=== PATIENT | male | born 1965 | race African-American/Black ===

== ENCOUNTER 2016-10-08 16:37 | Inpatient (IN) | payer SELFPAY ==
--- NOTE | ~2016-10-08 | CN ---
Consultation Report [facility] [address] [place]. [address] NAME: DASIA WAGNER : 65 STATUS : ADM IN [facility]#: [id number] AGE: 51 ADM/REG DATE : 10/08/16 MR#: [id number] REPORT SERV DATE: 10/12/16 DICTATED BY: REBECCA ABRAHAM DATE: 10/12/16 REPORT STATUS : Draft TRANSCRIBED BY: MODL DATE: 10/12/16 GI CONSULTATION DATE OF CONSULTATION: 10/12/2016 REASON FOR CONSULTATION: Evaluation and management of abdominal pain. HISTORY OF PRESENT ILLNESS: Mr. Wagner is a 51-year-old male patient, whom we have seen on 09/14 for PEG tube placement by Dr. Zhang. He has a history of type 2 diabetes, insulin dependent, with diabetic gastroparesis as well as chronic pain, on chronic narcotic pain medications. PEG tube was placed secondary to weight loss and gastroparesis. He states that since his PEG was placed, he was doing well up until the date of admission when he had what he states is a meal of rice and beans. He began to have epigastric abdominal pain that progressed to diffuse abdominal pain without radiation. He did have nausea with vomiting. He reported coffee-grounds. Hemoglobin has remained stable. We were consulted to see him for abdominal pain. The patient denies any recent fever, chills, chest pain, shortness of breath, black tarry stools, or hematochezia. He endorses constipation. He states he only goes to the bathroom every two weeks. PAST MEDICAL HISTORY: Positive for gastroparesis, uncontrolled diabetes mellitus type 2, reflux, anemia, KAMLESH, hypertension, neuropathy, chronic pain, psoriasis. PAST SURGICAL HISTORY: Hernia repair, right foot surgery, PEG tube placement. SOCIAL HISTORY: He denies alcohol, tobacco, or illicits. , but disabled. FAMILY HISTORY: Noncontributory from a GI standpoint. ALLERGIES: OXYCONTIN. HOME MEDICATIONS: Vitamin B complex, Caltrate plus D, vitamin D3, Colace, ferrous sulfate, Levsin, NovoLog, Levemir, Linzess, Proventil, Robaxin, Reglan, multivitamin, Percocet, Protonix, MiraLax, Lyrica, Phenergan, Carafate, and Ultram. REVIEW OF SYSTEMS: A 10-point review of systems obtained with pertinent positives addressed in the history of present illness. PERTINENT LABORATORY DATA: Sodium 138, potassium 3.8, BUN is 12, creatinine 0.71. White count 6.7, hemoglobin 8.7, hematocrit 26.1, platelet count 614. INR 1.1. PHYSICAL EXAMINATION: VITAL SIGNS: Temperature 98.2, pulse 98, respirations 18, and blood pressure 167/79. NEURO: Reveals an alert male, resting in bed with no focal deficits. Consultation Report [address] [place]. [address] NAME: DASIA WAGNER : 65 STATUS : ADM IN PAT#: [id number] AGE: 51 ADM/REG DATE : 10/08/16 MR#: [id number] REPORT SERV DATE: 10/12/16 DICTATED BY: REBECCA ABRAHAM DATE: 10/12/16 REPORT STATUS : Draft TRANSCRIBED BY: TESFAYE DATE: 10/12/16 GENERAL: Cooperative, in no obvious apparent distress. He is awake. He is alert. He is oriented x3. HEAD, EARS, EYES, NOSE, AND THROAT: Anicteric. Pupils equal, round, and reactive to light and accommodation. Normocephalic and atraumatic. NECK: No JVD. No palpable nodes. Supple. LUNGS: Clear in the upper lobes. Diminished bilaterally in the bases with normal respiratory effort exhibited. Equal expansion. CARDIOVASCULAR SYSTEM: Regular rate and rhythm, however, tachycardic. ABDOMEN: Soft with minimal distention. Hypoactive bowel sounds in all four quadrants. PEG tube site without redness, drainage, or blood. He has no rebound, guarding, or organomegaly appreciated on exam. EXTREMITIES: No edema. Normal distal pulses. SKIN: Warm, dry, and intact. ASSESSMENT: 1. Abdominal pain/generalized. 2. Abdominal bloat and distention. 3. Nausea. 4. Diabetic gastroparesis. 5. Type 2 diabetes, uncontrolled. 6. Chronic narcotic pain medication use. 7. Constipation, which is chronic, likely opioid induced. PLAN: 1. CT of the abdomen and pelvis. 2. PEG tube to gravity for drainage. 3. Change Reglan to erythromycin. 4. Questionable Movantik, but we will await CT findings as he has gotten enemas and multiple laxatives. 5. Decrease diet to clear liquid diet. We will follow. GABRIEL/TESFAYE SIDDHARTH Perez / [id number] CC: Marshall Vasquez MD
--- NOTE | ~2016-10-08 | DS ---
Discharge Summary [place] [id number] [facility] [place]. [address] NAME: DASIA WAGNER : 65 STATUS : DIS IN PAT#: [id number] AGE: 51 ADM/REG DATE : 10/08/16 MR#: [id number] REPORT SERV DATE: 10/16/16 DICTATED BY: DATE: REPORT STATUS : Draft TRANSCRIBED BY: MODL DATE: 10/15/16 ADMISSION DATE: 10/08/2016 DISCHARGE DATE: 10/15/2016 DISCHARGE DIAGNOSES: 1. Severe gastroparesis. 2. Constipation, severe. 3. Chronic pain. 4. Anemia. 5. Hypertension. 6. Tachycardia. CONSULTING PHYSICIANS: Hadley Zhang M.D. with GI. IMAGING: Includes CT of the abdomen and pelvis without contrast. This demonstrated a large amount of stool in the colon compatible with fecal stasis and constipation. No bowel obstruction pattern was demonstrated. DISCHARGE MEDICATIONS: Caltrate 1200 mg p.o. b.i.d., vitamin D3 5000 units p.o. b.i.d., Colace 300 mg p.o. daily, Levsin 0.125 mg p.o. t.i.d., Levemir 10 units subcu at bedtime, NovoLog sliding scale, lisinopril 20 mg p.o. daily, Linzess 290 mcg p.o. daily, Robaxin 750 mg p.o. four times daily, multivitamin one tablet p.o. daily, Protonix 40 mg p.o. daily, MiraLAX one packet p.o. daily, Lyrica 75 mg p.o. daily, Lopressor 50 mg p.o. b.i.d., Carafate 1 g p.o. four times daily, Ultram 50 mg p.o. t.i.d., Reglan 10 mg p.o. before meals and at bedtime, Phenergan 25 mg p.o. t.i.d. p.r.n. for nausea and vomiting, vitamin B 1 tab p.o. every morning, ferrous sulfate 325 mg p.o. daily, Percocet 7.5/325 mg tablet one tab p.o. t.i.d. p.r.n. for pain. HOSPITAL COURSE/PROBLEM LIST: 1. Severe gastroparesis. GI Medicine was consulted. [facility], Dr. Zhang, the patient has been seen by SIDDHARTH Perez to follow during his hospital course. As mentioned above, the CT scan of the abdomen demonstrated a large amount of stool and constipation; however, there were no other acute findings for the patient's abdominal pain. He was given a plethora of medications to fix his constipation including MiraLAX, docusate, Movantik, Linzess, and GoLYTELY. He has had 5 bowel movements since GoLYTELY. I will continue Movantik p.o. Post discharge, the patient was instructed to follow up with his Pain Management physician concerning further constipation considering I believe this is induced by narcotic use. The patient does have a PEG tube. Unfortunately, the patient has been followed by [facility] in the past, however, he was fired for noncompliance. They will not see him as an outpatient, so he will need to establish care with another GI doctor. He will also continue his Reglan p.o. He has not had any nausea and vomiting. Constipation in the last 24 hours. He is tolerating his diabetic diet. 2. Chronic pain as mentioned above. The patient will follow up with his Pain Management physician concerning this. I will continue the patient's Percocet 7.5/325 mg tablet 3 times a day. I will not increase this. The patient states that his Pain Management Discharge Summary [address] [address] NAME: DASIA WAGNER : 65 STATUS : DIS IN PAT#: [id number] AGE: 51 ADM/REG DATE : 10/08/16 MR#: [id number] REPORT SERV DATE: 10/16/16 DICTATED BY: DATE: REPORT STATUS : Draft TRANSCRIBED BY: MODL DATE: 10/15/16 physician is trying to wean his narcotic medications, which would improve his above problem of constipation. 3. Anemia. The patient's H and H has been stable here. Last H and H was today, and it was 9.0 and 27.9. He will need to follow up with his primary care provider for further monitoring of this. I will continue his p.o. iron that he was prescribed. 4. Hypertension. The patient has been well controlled. I added Lopressor 50 mg p.o. b.i.d., and I will continue this as an outpatient. We will give the patient a prescription. Again, he will need to follow up with his primary care provider for further management of this. His last blood pressure was 136/73 and heart rate 81. The patient is also taking lisinopril 20 mg p.o. daily, which I will continue. 5. Sinus tachycardia. The patient's tachycardia has resolved several days ago. I got a 12-lead EKG for unexplained tachycardia of the patient. He was in pain, however, even when the pain was controlled with IV Dilaudid, his heart rate was still elevated. He does have cardiac risk factors. I performed a 12-lead EKG that was normal sinus tach. I did not note any pathological Q-waves or ST-segment changes. The patient denied chest pain or shortness of breath, however, I did get an echocardiogram. Echocardiogram demonstrated that the patient had a mildly decreased left ventricular systolic function with an ejection fraction of 40-45%. He also had focal anterolateral, distal inferolateral hypocontractility and moderate left ventricular hypertrophy with mild diastolic dysfunction. He had no significant valvular disease. However, this is an abnormal echocardiogram, and the patient has not had a full cardiac workup. In the past, he does not have a urban anthropologist. I will refer him to the [facility] and have an appointment made for him prior to discharge for further workup of possible stress test or cardiac catheterization whatever they deem is necessary. The patient currently is in sinus rhythm with a heart rate of 81. I discussed the echocardiogram findings with Dr. Cruz ensuring that we should treat this patient as an outpatient versus an inpatient, and considering that the patient is asymptomatic, he has no shortness of breath and no chest pain, it seemed reasonable to continue his workup as an outpatient. CLR/MODL Goldy Caldwell NP / [id number] CC: Puneet Cruz MD
--- NOTE | ~2016-10-08 | HP ---
History And Physical [place] [address] [facility] [place]. [address] NAME: DASIA WGANER : 65 STATUS : ADM IN [facility]#: [id number] AGE: 51 ADM/REG DATE : 10/08/16 MR#: [id number] REPORT SERV DATE: 10/09/16 DICTATED BY: TRISHA VELEZ DATE: 10/08/16 REPORT STATUS : Draft TRANSCRIBED BY: MODRossy DATE: 10/08/16 DATE OF ADMISSION: 10/08/2016 CHIEF COMPLAINT: Nausea and vomiting with dark emesis. HISTORY OF PRESENT ILLNESS: The patient is a 51-year-old male with past history of insulin-dependent diabetes, recurrent gastroparesis, and chronic pain on narcotics, reflux pain, anemia, also had recent PEG tube placement for weight loss with gastroparesis. Symptoms began today that has been constant, moderate severity, with dull type pain, no radiation association, associated with nausea, vomiting. The patient reports that he had coffee-ground type emesis and also had an PEG tube with slight back flow, has not noticed any dark stools. Symptoms are still currently present. NG tube was placed in the emergency room without symptoms. REVIEW OF SYSTEMS: A 10-point review of systems negative except that noted in the HPI. PAST MEDICAL HISTORY: Gastroparesis, diabetes, A1c of 10 plus in 07/2016, reflux, anemia seen by Dr. Garcia, iron deficiency, hypertension, neuropathy, chronic pain, and psoriasis. SURGICAL HISTORY: Hernia repair, right foot surgery, and PEG tube placement. ALLERGIES: OXYCONTIN. SOCIAL HISTORY: No tobacco, alcohol or illicits. He is . Prior cook at [employer]. FAMILY HISTORY: Coronary artery disease and diabetes. MEDICATIONS: Vitamin B complex, Caltrate vitamin D3, Colace, ferrous sulfate, Levsin, NovoLog, and Levemir, Linzess, Prinivil, Robaxin, Reglan, multivitamin, Percocet, Protonix, MiraLAX, Lyrica, Phenergan, Carafate, and Ultram. PHYSICAL EXAMINATION: VITAL SIGNS: The patient's blood pressure 156/91, temperature 98.3, initial pulse was 120; however, currently down to 98, respirations 16. GENERAL: No acute distress. Calm, pleasant. EYES: No scleral icterus. EOMI. ENT nares patent. Tongue midline. RESPIRATORY: Clear to auscultation. No wheezes or rales. CV: Mildly tachycardic, but no rubs or gallops. No pedal edema. GI: PEG in place. Abdomen is soft, nontender, and nondistended. Does have mild dark matter in PEG. NG tube has since been removed. : Deferred. MUSCULOSKELETAL: Moves all extremities x4. SKIN: Warm and dry without tenting. LYMPH: No cervical or supraclavicular lymphadenopathy. History And Physical [address] [place]. [address] NAME: DASIA WAGNER : 65 STATUS : ADM IN [facility]#: [id number] AGE: 51 ADM/REG DATE : 10/08/16 MR#: [id number] REPORT SERV DATE: 10/09/16 DICTATED BY: TRISHA VELEZ DATE: 10/08/16 REPORT STATUS : Draft TRANSCRIBED BY: MODL DATE: 10/08/16 HEME: No bleeding or bruising. Acutely does have dark matter in the PEG tube site. NEURO: Alert and oriented. Moves all extremities x4. Symmetrical strength upper and lower extremities. PSYCH: Appropriate mood and affect, pleasant. LABORATORY DATA: CBC: WBC count 11.6, H and H 10.7 and 32.8. Previous hematocrit 28.4, MCV 69.8, platelets 847, INR 1.1. CMP; sodium 135, potassium 4.0, chloride 93, bicarb 30, BUN 31, creatinine 1.56, glucose 470. LFTs within normal limits. Alkaline phosphatase 77, T bilirubin 0.2, type and cross O positive negative. Repeat H and H 11.1 and 34.2. ASSESSMENT: 1. Diabetic gastroparesis with nausea and vomiting. 2. Coffee emesis on iron. 3. Insulin-dependent diabetes, type 2. 4. Chronic pain. 5. Acute kidney injury with volume depletion. 6. Elevated platelets with giant platelets on smear. PLAN: 1. For diabetes to gastroparesis with nausea and vomiting supportive, treat diabetes. The patient is hyperglycemic on arrival. IV fluids, has not really tolerate much p.o. secondary to gastroparesis. The patient did have coffee-emesis. We will confirm. Continue supportive treatment for gastroparesis. 2. Coffee emesis, the patient has also been on iron. H and H is actually increased, although the patient is slightly volume depleted with NORBERT, we will continue to monitor with IV fluids and serial H and H, transfuse, type and cross are currently done. We will check fecal occult blood test. Consult GI, if positive or decrease in H and H, but may still require screening colonoscopy with microcytic anemia. 3. Iron deficiency. He has seen Dr. Garcia in the past for possible followup for surveillance colonoscopies as required as recommended by GI in the past. 4. Insulin-dependent diabetes, type 2 uncontrolled, increase Levemir to b.i.d. schedule and sliding scale insulin. Diet control advance as able to tolerate p.o. 5. Chronic pain, continue on p.r.n. medications at home medication. 6. Acute kidney injury with volume depletion. IV fluids. Treat underlying gastroparesis. 7. Elevated platelets questionable reactive, we will monitor platelets on smear. All questions were answered of the patient at bedside. DISPOSITION: Pending resolution of gastroparesis and ability to tolerate p.o., as well as confirmation of emesis and monitoring of H and H. DDN/MODL Trisha Velez MD History And Physical [address] [address] NAME: DASIA WAGNER : 65 STATUS : ADM IN [facility]#: [id number] AGE: 51 ADM/REG DATE : 10/08/16 MR#: [id number] REPORT SERV DATE: 10/09/16 DICTATED BY: TRISHA VELEZ DATE: 10/08/16 REPORT STATUS : Draft TRANSCRIBED BY: MODL DATE: 10/08/16 / [id number] CC: Flora Cisse M.D.
[2016-10-08 14:41] LABS: BASOPHILS 0.4 %; BASOPHILS ABSOLUTE 0.05 10/3/uL (0.0-0.16); EOSINOPHILS 0.1 %; EOSINOPHILS ABSOLUTE 0.01 10/3/uL (0.0-0.53); HEMATOCRIT 32.8 % (40.0-51.0); HEMOGLOBIN 10.7 g/dL (13.6-17.8); IMMATURE GRANULOCYTES 0.9 %; LYMPHOCYTES 17.1 %; LYMPHOCYTES ABSOLUTE 1.97 10/3/uL (0.67-4.30); MEAN CORPUS HGB CONC 32.6 g/dL (32.0-36.0); MEAN CORPUSCULAR HEMOGLOB 22.8 pg (26.0-34.0); MEAN CORPUSCULAR VOLUME 69.8 fL (80-100); MEAN PLATELET VOLUME 9.1 fL (9.2-13.0); MONOCYTES 8.5 %; MONOCYTES ABSOLUTE 0.98 10/3/uL (0.21-1.20); NEUTROPHILS ABSOLUTE 8.44 10/3/uL (2.02-8.40); PLATELET COUNT 847 10/3/uL (150-400); RBC DISTRIBUTION WIDTH 14.9 % (12.0-16.0); WHITE BLOOD CELLS 11.6 10/3/uL (4.5-10.5)
[2016-10-08 14:42] LABS: MANUAL DIFF NO %
[2016-10-08 14:48] LABS: INTERNATIONAL NORMAL RATI 1.1 UNITS (-); PARTIAL THROMBO TIME 26.2 SEC (22.5-37.2); PROTIME (NOT ORD) 13.8 SEC (12.0-14.5)
[2016-10-08 14:57] LABS: GIANT PLATELET OCC; RBC MORPHOLOGY ABN (NORMAL)
[2016-10-08 15:00] LABS: A/G RATIO 0.6 (0.7-1.9); CO2 (CARBON DIOXIDE) 30 MMOL/L (24-34); SGOT(AST) 6 U/L (5-40); SGPT(ALT) 16 U/L (5-65); SODIUM, SERUM 135 MMOL/L (135-148); TOTAL BILIRUBIN 0.2 MG/DL (0-1.2)
[2016-10-08 15:03] LABS: ALKALINE PHOSPHATASE 77 U/L (45-117); BUN (BLOOD UREA NITROGEN) 30 MG/DL (6-23); CALCIUM, SERUM 9.3 MG/DL (8.5-10.4); CHLORIDE, SERUM 93 MMOL/L (96-112); CREATININE 1.56 MG/DL (0.70-1.30); GFR AFRICAN AMERICAN 59 ML/MIN (>=60); GFR NON AFRICAN AMERICAN 51 ML/MIN (>=60); GLUCOSE, SERUM 470 MG/DL (60-99)
[~2016-10-08 16:37] MED LIST: CALCIUM OTC PO; CALTRA600D PO; CENTRUM PO; D 5000 PO; DSS PO; FERROUS SULF325 M1 PO; FISH-EPA1000 MG PO; HUMALOG SC; HUMALOGMIX SC; INSNOVN SC; LEVEMFLXPN SC; LEVEMIR SC; LEVSINTAB PO; LINZESS 290 M290 MCG PO; LISINOPRIL PO; LOP25 PO; LYRICA75 PO; MAXIMUM D3 PO; METHOC750B PO; MIRALAXPKT PO; MULTIVIT/MIN PO; MVI PO; NOVOLOG SC; PERCOCET 7.5/321 TAB PO; PERCOCET1 TA4 PO; PR25 PO; PRIN20 PO; PROTONIX PO; REG PO; REG5 PO; SUCR PO; ULTRAM50 PO; VITAMIN B PO; VITAMIN D31000 UNIT PO; ZESTRIL20 MG PO
[2016-10-08] MEDS ORDERED: MIRALAX POWDER1 PKT PO (17:13)
[2016-10-08] MEDS ORDERED: DSS PO (17:13)
[2016-10-08 21:21] LABS: HEMATOCRIT 34.2 % (40.0-51.0); HEMOGLOBIN 11.1 g/dL (13.6-17.8)
[2016-10-09 07:04] LABS: BUN (BLOOD UREA NITROGEN) 28 MG/DL (6-23); CALCIUM, SERUM 8.6 MG/DL (8.5-10.4); CHLORIDE, SERUM 105 MMOL/L (96-112); CO2 (CARBON DIOXIDE) 26 MMOL/L (24-34); CREATININE 1.06 MG/DL (0.70-1.30); GFR AFRICAN AMERICAN 94 ML/MIN (>=60); GFR NON AFRICAN AMERICAN 81 ML/MIN (>=60); GLUCOSE, SERUM 79 MG/DL (60-99); POTASSIUM, SERUM 3.6 MMOL/L (3.5-5.3); SODIUM, SERUM 143 MMOL/L (135-148)
[2016-10-09 07:14] LABS: BASOPHILS 0.4 %; BASOPHILS ABSOLUTE 0.05 10/3/uL (0.0-0.16); EOSINOPHILS 0.5 %; EOSINOPHILS ABSOLUTE 0.06 10/3/uL (0.0-0.53); HEMOGLOBIN 9.7 g/dL (13.6-17.8); IMMATURE GRANULOCYTES 0.7 %; IMMATURE GRANULOCYTES ABSOLUTE 0.08 10/3/uL (0.0-0.11); LYMPHOCYTES 26.5 %; LYMPHOCYTES ABSOLUTE 3.24 10/3/uL (0.67-4.30); MEAN CORPUS HGB CONC 33.1 g/dL (32.0-36.0); MEAN CORPUSCULAR HEMOGLOB 23.3 pg (26.0-34.0); MEAN CORPUSCULAR VOLUME 70.4 fL (80-100); MEAN PLATELET VOLUME 9.5 fL (9.2-13.0); MONOCYTES 8.7 %; MONOCYTES ABSOLUTE 1.07 10/3/uL (0.21-1.20); NEUTROPHILS 63.2 %; NEUTROPHILS ABSOLUTE 7.73 10/3/uL (2.02-8.40); PLATELET COUNT 699 10/3/uL (150-400); RBC DISTRIBUTION WIDTH 15.1 % (12.0-16.0); RED CELL COUNT 4.16 10/6/uL (4.7-6.1); RETICULOCYTE COUNT ABSOLUTE 39.5 10/3/uL (20.2-119.8); WHITE BLOOD CELLS 12.2 10/3/uL (4.5-10.5)
[2016-10-09 07:24] LABS: HEMATOCRIT 29.3 % (40.0-51.0); MANUAL DIFF NO %
[2016-10-09 13:30] LABS: HEMATOCRIT 29.5 % (40.0-51.0); HEMOGLOBIN 9.7 g/dL (13.6-17.8)
[2016-10-10 06:39] LABS: BASOPHILS 0.8 %; BASOPHILS ABSOLUTE 0.06 10/3/uL (0.0-0.16); EOSINOPHILS 1.9 %; EOSINOPHILS ABSOLUTE 0.14 10/3/uL (0.0-0.53); HEMATOCRIT 26.7 % (40.0-51.0); HEMOGLOBIN 8.4 g/dL (13.6-17.8); IMMATURE GRANULOCYTES 0.7 %; IMMATURE GRANULOCYTES ABSOLUTE 0.05 10/3/uL (0.0-0.11); LYMPHOCYTES 35.3 %; LYMPHOCYTES ABSOLUTE 2.66 10/3/uL (0.67-4.30); MEAN CORPUS HGB CONC 31.5 g/dL (32.0-36.0); MEAN CORPUSCULAR HEMOGLOB 22.1 pg (26.0-34.0); MEAN CORPUSCULAR VOLUME 70.3 fL (80-100); MEAN PLATELET VOLUME 9.2 fL (9.2-13.0); MONOCYTES ABSOLUTE 0.53 10/3/uL (0.21-1.20); NEUTROPHILS 54.3 %; PLATELET COUNT 644 10/3/uL (150-400); RBC DISTRIBUTION WIDTH 15.1 % (12.0-16.0); WHITE BLOOD CELLS 7.5 10/3/uL (4.5-10.5)
[2016-10-10 06:43] LABS: MANUAL DIFF NO %
[2016-10-10 06:55] LABS: BUN (BLOOD UREA NITROGEN) 24 MG/DL (6-23); CALCIUM, SERUM 7.8 MG/DL (8.5-10.4); CHLORIDE, SERUM 107 MMOL/L (96-112); CO2 (CARBON DIOXIDE) 24 MMOL/L (24-34); CREATININE 0.96 MG/DL (0.70-1.30); GFR AFRICAN AMERICAN 106 ML/MIN (>=60); GFR NON AFRICAN AMERICAN 91 ML/MIN (>=60); GLUCOSE, SERUM 85 MG/DL (60-99); POTASSIUM, SERUM 3.3 MMOL/L (3.5-5.3); SODIUM, SERUM 141 MMOL/L (135-148)
[2016-10-11 08:50] LABS: BASOPHILS 0.8 %; BASOPHILS ABSOLUTE 0.06 10/3/uL (0.0-0.16); EOSINOPHILS 0.7 %; EOSINOPHILS ABSOLUTE 0.05 10/3/uL (0.0-0.53); HEMATOCRIT 28.2 % (40.0-51.0); HEMOGLOBIN 9.2 g/dL (13.6-17.8); IMMATURE GRANULOCYTES 0.8 %; IMMATURE GRANULOCYTES ABSOLUTE 0.06 10/3/uL (0.0-0.11); LYMPHOCYTES 31.3 %; LYMPHOCYTES ABSOLUTE 2.41 10/3/uL (0.67-4.30); MEAN CORPUS HGB CONC 32.6 g/dL (32.0-36.0); MEAN CORPUSCULAR HEMOGLOB 23.2 pg (26.0-34.0); MEAN PLATELET VOLUME 9.4 fL (9.2-13.0); MONOCYTES 6.4 %; MONOCYTES ABSOLUTE 0.49 10/3/uL (0.21-1.20); NEUTROPHILS ABSOLUTE 4.62 10/3/uL (2.02-8.40); PLATELET COUNT 674 10/3/uL (150-400); RBC DISTRIBUTION WIDTH 14.8 % (12.0-16.0); RED CELL COUNT 3.97 10/6/uL (4.7-6.1); WHITE BLOOD CELLS 7.7 10/3/uL (4.5-10.5)
[2016-10-11 08:51] LABS: CALCIUM, SERUM 8.4 MG/DL (8.5-10.4); CHLORIDE, SERUM 103 MMOL/L (96-112); CO2 (CARBON DIOXIDE) 21 MMOL/L (24-34); CREATININE 0.72 MG/DL (0.70-1.30); GFR AFRICAN AMERICAN 125 ML/MIN (>=60); GFR NON AFRICAN AMERICAN 108 ML/MIN (>=60); POTASSIUM, SERUM 3.6 MMOL/L (3.5-5.3); SODIUM, SERUM 136 MMOL/L (135-148)
[2016-10-11 08:52] LABS: BUN (BLOOD UREA NITROGEN) 16 MG/DL (6-23); GLUCOSE, SERUM 142 MG/DL (60-99)
[2016-10-11 09:15] LABS: PLATELET ESTIMATE INC (ADEQUATE)
[2016-10-12 06:32] LABS: BASOPHILS 0.5 %; BASOPHILS ABSOLUTE 0.03 10/3/uL (0.0-0.16); EOSINOPHILS ABSOLUTE 0.13 10/3/uL (0.0-0.53); HEMATOCRIT 26.1 % (40.0-51.0); HEMOGLOBIN 8.7 g/dL (13.6-17.8); IMMATURE GRANULOCYTES 0.8 %; IMMATURE GRANULOCYTES ABSOLUTE 0.05 10/3/uL (0.0-0.11); LYMPHOCYTES 33.2 %; LYMPHOCYTES ABSOLUTE 2.21 10/3/uL (0.67-4.30); MEAN CORPUS HGB CONC 33.3 g/dL (32.0-36.0); MEAN CORPUSCULAR HEMOGLOB 23.6 pg (26.0-34.0); MEAN CORPUSCULAR VOLUME 70.7 fL (80-100); MEAN PLATELET VOLUME 9.3 fL (9.2-13.0); MONOCYTES 9.3 %; MONOCYTES ABSOLUTE 0.62 10/3/uL (0.21-1.20); NEUTROPHILS 54.2 %; NEUTROPHILS ABSOLUTE 3.62 10/3/uL (2.02-8.40); PLATELET COUNT 614 10/3/uL (150-400); RBC DISTRIBUTION WIDTH 15.1 % (12.0-16.0); RED CELL COUNT 3.69 10/6/uL (4.7-6.1); WHITE BLOOD CELLS 6.7 10/3/uL (4.5-10.5)
[2016-10-12 06:33] LABS: MANUAL DIFF NO %
[2016-10-12 06:41] LABS: CALCIUM, SERUM 8.7 MG/DL (8.5-10.4); CHLORIDE, SERUM 104 MMOL/L (96-112); CO2 (CARBON DIOXIDE) 23 MMOL/L (24-34); CREATININE 0.71 MG/DL (0.70-1.30); GFR AFRICAN AMERICAN 126 ML/MIN (>=60); GFR NON AFRICAN AMERICAN 109 ML/MIN (>=60); POTASSIUM, SERUM 3.8 MMOL/L (3.5-5.3); SODIUM, SERUM 138 MMOL/L (135-148)
[2016-10-12 06:42] LABS: BUN (BLOOD UREA NITROGEN) 12 MG/DL (6-23); GLUCOSE, SERUM 105 MG/DL (60-99)
[2016-10-12 09:17] LABS: A/G RATIO 0.6 (0.7-1.9); ALBUMIN 2.2 G/DL (3.5-5.0); ALKALINE PHOSPHATASE 48 U/L (45-117); GLOBULIN 3.7 G/DL (2.5-4.1); SGOT(AST) 12 U/L (5-40); SGPT(ALT) 13 U/L (5-65); TOTAL BILIRUBIN 0.3 MG/DL (0-1.2); TOTAL PROTEIN 5.9 G/DL (6.0-8.5)
[2016-10-13 05:03] LABS: BASOPHILS 0.3 %; BASOPHILS ABSOLUTE 0.03 10/3/uL (0.0-0.16); EOSINOPHILS 2.2 %; EOSINOPHILS ABSOLUTE 0.19 10/3/uL (0.0-0.53); HEMATOCRIT 29.5 % (40.0-51.0); HEMOGLOBIN 9.8 g/dL (13.6-17.8); IMMATURE GRANULOCYTES 0.9 %; IMMATURE GRANULOCYTES ABSOLUTE 0.08 10/3/uL (0.0-0.11); LYMPHOCYTES 46.1 %; LYMPHOCYTES ABSOLUTE 4.01 10/3/uL (0.67-4.30); MEAN CORPUS HGB CONC 33.2 g/dL (32.0-36.0); MEAN CORPUSCULAR HEMOGLOB 23.5 pg (26.0-34.0); MEAN CORPUSCULAR VOLUME 70.7 fL (80-100); MONOCYTES 9.8 %; MONOCYTES ABSOLUTE 0.85 10/3/uL (0.21-1.20); NEUTROPHILS 40.7 %; NEUTROPHILS ABSOLUTE 3.53 10/3/uL (2.02-8.40); PLATELET COUNT 702 10/3/uL (150-400); RBC DISTRIBUTION WIDTH 15.1 % (12.0-16.0); RED CELL COUNT 4.17 10/6/uL (4.7-6.1); WHITE BLOOD CELLS 8.7 10/3/uL (4.5-10.5)
[2016-10-13 05:04] LABS: MANUAL DIFF NO %; PROTIME (NOT ORD) 13.3 SEC (12.0-14.5)
[2016-10-13 05:14] LABS: BUN (BLOOD UREA NITROGEN) 8 MG/DL (6-23); CALCIUM, SERUM 8.7 MG/DL (8.5-10.4); CHLORIDE, SERUM 104 MMOL/L (96-112); CO2 (CARBON DIOXIDE) 26 MMOL/L (24-34); GFR AFRICAN AMERICAN 127 ML/MIN (>=60); GFR NON AFRICAN AMERICAN 109 ML/MIN (>=60); GLUCOSE, SERUM 59 MG/DL (60-99); POTASSIUM, SERUM 3.2 MMOL/L (3.5-5.3); SODIUM, SERUM 139 MMOL/L (135-148)
[2016-10-14 08:22] LABS: HEMATOCRIT 27.9 % (40.0-51.0); HEMOGLOBIN 9.1 g/dL (13.6-17.8); MEAN CORPUS HGB CONC 32.6 g/dL (32.0-36.0); MEAN CORPUSCULAR HEMOGLOB 23.2 pg (26.0-34.0); MEAN CORPUSCULAR VOLUME 71.2 fL (80-100); MEAN PLATELET VOLUME 8.6 fL (9.2-13.0); PLATELET COUNT 607 10/3/uL (150-400); RBC DISTRIBUTION WIDTH 15.2 % (12.0-16.0); RED CELL COUNT 3.92 10/6/uL (4.7-6.1); WHITE BLOOD CELLS 6.8 10/3/uL (4.5-10.5)
[2016-10-14 08:26] LABS: MANUAL DIFF YES %
[2016-10-14 08:47] LABS: LYMPHOCYTES 30 %; LYMPHOCYTES ABSOLUTE (CALC) 2.04 10/3/uL (0.67-4.30); MONOCYTES 4 %; MONOCYTES ABSOLUTE (CALC) 0.27 10/3/uL (0.21-1.20); NEUTROPHILS ABSOLUTE (CALC) 4.49 10/3/uL (2.02-8.40); PLATELET ESTIMATE INC (ADEQUATE); RBC MORPHOLOGY NORM (NORMAL); SEGMENTED NEUTROPHIL (0) 66 %; TOTAL NUCLEATED CELLS 100
[2016-10-14 08:48] LABS: BUN (BLOOD UREA NITROGEN) 10 MG/DL (6-23); CALCIUM, SERUM 8.1 MG/DL (8.5-10.4); CHLORIDE, SERUM 104 MMOL/L (96-112); CO2 (CARBON DIOXIDE) 24 MMOL/L (24-34); CREATININE 0.81 MG/DL (0.70-1.30); GFR AFRICAN AMERICAN 119 ML/MIN (>=60); GFR NON AFRICAN AMERICAN 103 ML/MIN (>=60); POTASSIUM, SERUM 3.3 MMOL/L (3.5-5.3); SODIUM, SERUM 139 MMOL/L (135-148)
[2016-10-14 08:49] LABS: GLUCOSE, SERUM 108 MG/DL (60-99)
[2016-10-15 07:07] LABS: BASOPHILS 1.2 %; BASOPHILS ABSOLUTE 0.09 10/3/uL (0.0-0.16); EOSINOPHILS 3.9 %; EOSINOPHILS ABSOLUTE 0.29 10/3/uL (0.0-0.53); HEMATOCRIT 27.9 % (40.0-51.0); IMMATURE GRANULOCYTES 0.5 %; IMMATURE GRANULOCYTES ABSOLUTE 0.04 10/3/uL (0.0-0.11); LYMPHOCYTES 44.3 %; LYMPHOCYTES ABSOLUTE 3.29 10/3/uL (0.67-4.30); MEAN CORPUS HGB CONC 32.3 g/dL (32.0-36.0); MEAN CORPUSCULAR VOLUME 71.4 fL (80-100); MEAN PLATELET VOLUME 8.9 fL (9.2-13.0); MONOCYTES 8.5 %; MONOCYTES ABSOLUTE 0.63 10/3/uL (0.21-1.20); NEUTROPHILS 41.6 %; NEUTROPHILS ABSOLUTE 3.08 10/3/uL (2.02-8.40); PLATELET COUNT 627 10/3/uL (150-400); RBC DISTRIBUTION WIDTH 15.6 % (12.0-16.0); RED CELL COUNT 3.91 10/6/uL (4.7-6.1); WHITE BLOOD CELLS 7.4 10/3/uL (4.5-10.5)
[2016-10-15 07:09] LABS: MANUAL DIFF NO %
[2016-10-15 07:18] LABS: BUN (BLOOD UREA NITROGEN) 10 MG/DL (6-23); CHLORIDE, SERUM 105 MMOL/L (96-112); CO2 (CARBON DIOXIDE) 25 MMOL/L (24-34); CREATININE 0.93 MG/DL (0.70-1.30); GFR AFRICAN AMERICAN 110 ML/MIN (>=60); GFR NON AFRICAN AMERICAN 95 ML/MIN (>=60); SODIUM, SERUM 140 MMOL/L (135-148)
[2016-10-15 07:19] LABS: GLUCOSE, SERUM 72 MG/DL (60-99); POTASSIUM, SERUM 4.1 MMOL/L (3.5-5.3)
[2016-10-15] MEDS ORDERED: LOP50 PO (10:48)
[2016-10-15] MEDS ORDERED: MOVANTIK25 MG PO (10:49)
== END 2016-10-15 17:24 | disposition home or self-care (01) | DRG 74 ==
LOC: ER 16:37 → 4SO 17:24
PROVIDERS: Emergency Medicine; Nurse Practitioner Acute Care; Student in an Organized Health Care Education/Training Program
DX: E11.43 Type 2 diabetes mellitus with diabetic autonomic (poly)neuropathy (principal); K92.0 Hematemesis; N17.9 Acute kidney failure, unspecified; N18.3 Chronic kidney disease, stage 3 (moderate); E46 Unspecified protein-calorie malnutrition; E11.65 Type 2 diabetes mellitus with hyperglycemia; K31.84 Gastroparesis; I12.9 Hypertensive chronic kidney disease with stage 1 through stage 4 chronic kidney disease, or unspecified chronic kidney disease; Z23 Encounter for immunization; E86.9 Volume depletion, unspecified; G89.29 Other chronic pain; F11.90 Opioid use, unspecified, uncomplicated; D64.9 Anemia, unspecified; E11.42 Type 2 diabetes mellitus with diabetic polyneuropathy; L40.9 Psoriasis, unspecified; K59.00 Constipation, unspecified; R00.0 Tachycardia, unspecified; K59.03 Drug induced constipation; T40.2X5A Adverse effect of other opioids, initial encounter; Z93.1 Gastrostomy status; Z79.4 Long term (current) use of insulin; Z88.5 Allergy status to narcotic agent; Z98.890 Other specified postprocedural states; Y92.009 Unspecified place in unspecified non-institutional (private) residence as the place of occurrence of the external cause; Z68.23 Body mass index [BMI] 23.0-23.9, adult
CPT/HCPCS: 36415; 74176; 80048; 80053; 82270; 82272; 82570; 82962; 83605; 83735; 83935; 84132; 84300; 85014; 85018; 85025; 85045; 85610; 85730; 86850; 86900; 86901; 93005; 93306; 99285; A9270-GY; C9113; J0360; J1170; J2405; J2550

== ENCOUNTER 2016-10-27 11:28 | Emergency (ER) | payer SELFPAY ==
[2016-10-27 10:56] LABS: BASOPHILS ABSOLUTE 0.06 10/3/uL (0.0-0.16); EOSINOPHILS 0.7 %; EOSINOPHILS ABSOLUTE 0.04 10/3/uL (0.0-0.53); HEMATOCRIT 34.6 % (40.0-51.0); HEMOGLOBIN 11.2 g/dL (13.6-17.8); IMMATURE GRANULOCYTES 0.3 %; IMMATURE GRANULOCYTES ABSOLUTE 0.02 10/3/uL (0.0-0.11); LYMPHOCYTES 27.1 %; LYMPHOCYTES ABSOLUTE 1.59 10/3/uL (0.67-4.30); MANUAL DIFF NO %; MEAN CORPUS HGB CONC 32.4 g/dL (32.0-36.0); MEAN CORPUSCULAR HEMOGLOB 23.5 pg (26.0-34.0); MEAN CORPUSCULAR VOLUME 72.5 fL (80-100); MEAN PLATELET VOLUME 8.5 fL (9.2-13.0); MONOCYTES 6.5 %; MONOCYTES ABSOLUTE 0.38 10/3/uL (0.21-1.20); NEUTROPHILS 64.4 %; NEUTROPHILS ABSOLUTE 3.78 10/3/uL (2.02-8.40); PLATELET COUNT 530 10/3/uL (150-400); RBC DISTRIBUTION WIDTH 15.8 % (12.0-16.0); RED CELL COUNT 4.77 10/6/uL (4.7-6.1); WHITE BLOOD CELLS 5.9 10/3/uL (4.5-10.5)
[2016-10-27 11:10] LABS: A/G RATIO 0.6 (0.7-1.9); ALBUMIN 2.7 G/DL (3.5-5.0); ALKALINE PHOSPHATASE 55 U/L (45-117); BUN (BLOOD UREA NITROGEN) 13 MG/DL (6-23); CALCIUM, SERUM 8.9 MG/DL (8.5-10.4); CHLORIDE, SERUM 102 MMOL/L (96-112); CO2 (CARBON DIOXIDE) 26 MMOL/L (24-34); CREATININE 0.92 MG/DL (0.70-1.30); GFR AFRICAN AMERICAN 111 ML/MIN (>=60); GFR NON AFRICAN AMERICAN 96 ML/MIN (>=60); GLOBULIN 4.4 G/DL (2.5-4.1); GLUCOSE, SERUM 269 MG/DL (60-99); POTASSIUM, SERUM 3.6 MMOL/L (3.5-5.3); SGOT(AST) 10 U/L (5-40); SGPT(ALT) 19 U/L (5-65); SODIUM, SERUM 139 MMOL/L (135-148); TOTAL BILIRUBIN 0.3 MG/DL (0-1.2); TOTAL PROTEIN 7.1 G/DL (6.0-8.5)
[~2016-10-27 11:28] MED LIST changes: +LOP50 PO; +MIRALAX POWDER1 PKT PO; +MOVANTIK25 MG PO
[2016-10-27 13:19] LABS: ASCORBIC ACID (UR NOT ORDER) NEG (NEG); BILIRUBIN, URINE NEGATIVE (NEG); ER URINALYSIS TAT 0 Hrs 13 Mins; KETONE, URINE TRACE MG/DL (NEG); LEUKOCYTE ESTERASE(NOT OR NEG (NEG); NITRITE (URINE) NEG (NEG); WBC (NOT ORDERED) (RFLEX) 1 (0-5)
== END 2016-10-27 14:25 | disposition home or self-care (01) ==
LOC: ER 11:28
PROVIDERS: Nurse Practitioner
DX: E11.43 Type 2 diabetes mellitus with diabetic autonomic (poly)neuropathy (principal); K31.84 Gastroparesis; E11.65 Type 2 diabetes mellitus with hyperglycemia; I12.9 Hypertensive chronic kidney disease with stage 1 through stage 4 chronic kidney disease, or unspecified chronic kidney disease; N18.9 Chronic kidney disease, unspecified; K21.9 Gastro-esophageal reflux disease without esophagitis; D64.9 Anemia, unspecified; Z93.1 Gastrostomy status; Z88.5 Allergy status to narcotic agent; Z79.4 Long term (current) use of insulin; Z79.899 Other long term (current) drug therapy
CPT/HCPCS: 74022; 80053; 81001; 83605; 83690; 85025; 96374; 96375; 99285; J1200; J1980; J2550; J2765

== ENCOUNTER 2016-11-16 17:24 | Emergency (ER) | payer SELFPAY ==
[2016-11-16 18:40] LABS: BASOPHILS 0.6 %; BASOPHILS ABSOLUTE 0.04 10/3/uL (0.0-0.16); EOSINOPHILS 0.6 %; EOSINOPHILS ABSOLUTE 0.04 10/3/uL (0.0-0.53); ER CBC TAT 0 Hrs 11 Mins; IMMATURE GRANULOCYTES 0.6 %; IMMATURE GRANULOCYTES ABSOLUTE 0.04 10/3/uL (0.0-0.11); LYMPHOCYTES 28.9 %; LYMPHOCYTES ABSOLUTE 1.94 10/3/uL (0.67-4.30); MEAN CORPUS HGB CONC 32.8 g/dL (32.0-36.0); MEAN CORPUSCULAR HEMOGLOB 23.6 pg (26.0-34.0); MEAN CORPUSCULAR VOLUME 72.1 fL (80-100); MEAN PLATELET VOLUME 8.8 fL (9.2-13.0); MONOCYTES 5.5 %; MONOCYTES ABSOLUTE 0.37 10/3/uL (0.21-1.20); NEUTROPHILS 63.8 %; NEUTROPHILS ABSOLUTE 4.29 10/3/uL (2.02-8.40); RBC DISTRIBUTION WIDTH 14.9 % (12.0-16.0); RED CELL COUNT 4.23 10/6/uL (4.7-6.1); WHITE BLOOD CELLS 6.7 10/3/uL (4.5-10.5)
[2016-11-16 18:49] LABS: HEMATOCRIT 30.5 % (40.0-51.0); PLATELET COUNT 753 10/3/uL (150-400)
[2016-11-16 18:51] LABS: ASCORBIC ACID (UR NOT ORDER) NEG (NEG); BILIRUBIN, URINE NEGATIVE (NEG); ER URINALYSIS TAT 0 Hrs 19 Mins; KETONE, URINE NEGATIVE (NEG); LEUKOCYTE ESTERASE(NOT OR NEG (NEG); NITRITE (URINE) NEG (NEG); WBC (NOT ORDERED) (RFLEX) 1 (0-5)
[2016-11-16 18:54] LABS: A/G RATIO 0.7 (0.7-1.9); ALBUMIN 2.6 G/DL (3.5-5.0); ALKALINE PHOSPHATASE 61 U/L (45-117); CHLORIDE, SERUM 97 MMOL/L (96-112); CO2 (CARBON DIOXIDE) 27 MMOL/L (24-34); CREATININE 1.27 MG/DL (0.70-1.30); GFR AFRICAN AMERICAN 75 ML/MIN (>=60); GFR NON AFRICAN AMERICAN 65 ML/MIN (>=60); GLOBULIN 3.7 G/DL (2.5-4.1); POTASSIUM, SERUM 4.3 MMOL/L (3.5-5.3); SGOT(AST) 19 U/L (5-40); SGPT(ALT) 27 U/L (5-65); SODIUM, SERUM 133 MMOL/L (135-148); TOTAL BILIRUBIN 0.2 MG/DL (0-1.2); TOTAL PROTEIN 6.3 G/DL (6.0-8.5)
[2016-11-16 18:55] LABS: BUN (BLOOD UREA NITROGEN) 26 MG/DL (6-23); GLUCOSE, SERUM 424 MG/DL (60-99); MANUAL DIFF NO %
== END 2016-11-16 23:33 | disposition home or self-care (01) ==
LOC: ER 17:24
PROVIDERS: Emergency Medicine
DX: K59.09 Other constipation (principal); G89.29 Other chronic pain; E11.65 Type 2 diabetes mellitus with hyperglycemia; R10.33 Periumbilical pain; I10 Essential (primary) hypertension; D64.9 Anemia, unspecified
CPT/HCPCS: 74176; 80053; 81001; 82962; 83605; 83690; 85025; 96374; 96375; 99284; A9270-GY; C9113; J1980; J2405

== ENCOUNTER 2017-01-01 10:21 | Emergency (ER) | payer BC ==
[2017-01-01 10:30] LABS: BASOPHILS 0.2 %; BASOPHILS ABSOLUTE 0.02 10/3/uL (0.0-0.16); EOSINOPHILS 1.2 %; ER CBC TAT 0 Hrs 10 Mins; IMMATURE GRANULOCYTES 0.8 %; IMMATURE GRANULOCYTES ABSOLUTE 0.07 10/3/uL (0.0-0.11); LYMPHOCYTES 15.3 %; MEAN CORPUS HGB CONC 32.7 g/dL (32.0-36.0); MEAN CORPUSCULAR HEMOGLOB 23.4 pg (26.0-34.0); MEAN CORPUSCULAR VOLUME 71.3 fL (80-100); MEAN PLATELET VOLUME 8.9 fL (9.2-13.0); MONOCYTES 12.6 %; MONOCYTES ABSOLUTE 1.07 10/3/uL (0.21-1.20); NEUTROPHILS 69.9 %; NEUTROPHILS ABSOLUTE 5.94 10/3/uL (2.02-8.40); PLATELET COUNT 566 10/3/uL (150-400); RBC DISTRIBUTION WIDTH 14.4 % (12.0-16.0); RED CELL COUNT 4.71 10/6/uL (4.7-6.1); WHITE BLOOD CELLS 8.5 10/3/uL (4.5-10.5)
[2017-01-01 10:34] LABS: HEMATOCRIT 33.6 % (40.0-51.0); MANUAL DIFF NO %
[2017-01-01 10:41] LABS: A/G RATIO 0.7 (0.7-1.9); ALBUMIN 3.2 G/DL (3.5-5.0); ALKALINE PHOSPHATASE 77 U/L (45-117); BUN (BLOOD UREA NITROGEN) 29 MG/DL (6-23); CALCIUM, SERUM 9.8 MG/DL (8.5-10.4); CHLORIDE, SERUM 97 MMOL/L (96-112); CO2 (CARBON DIOXIDE) 27 MMOL/L (24-34); CREATININE 1.06 MG/DL (0.70-1.30); GFR AFRICAN AMERICAN 94 ML/MIN (>=60); GFR NON AFRICAN AMERICAN 81 ML/MIN (>=60); GLOBULIN 4.6 G/DL (2.5-4.1); GLUCOSE, SERUM 346 MG/DL (60-99); POTASSIUM, SERUM 4.3 MMOL/L (3.5-5.3); SGOT(AST) 10 U/L (5-40); SGPT(ALT) 20 U/L (5-65); SODIUM, SERUM 126 MMOL/L (135-148); TOTAL BILIRUBIN 0.3 MG/DL (0-1.2); TOTAL PROTEIN 7.8 G/DL (6.0-8.5)
[2017-01-01 10:53] LABS: PLATELET ESTIMATE SLT INC (ADEQUATE)
== END 2017-01-01 11:57 | disposition home or self-care (01) ==
LOC: ER 10:21
PROVIDERS: Emergency Medicine
DX: G89.29 Other chronic pain (principal); R10.33 Periumbilical pain; K59.00 Constipation, unspecified; I10 Essential (primary) hypertension; K21.9 Gastro-esophageal reflux disease without esophagitis; D64.9 Anemia, unspecified; E11.9 Type 2 diabetes mellitus without complications; Z93.1 Gastrostomy status; Z88.5 Allergy status to narcotic agent; Z79.4 Long term (current) use of insulin; Z79.899 Other long term (current) drug therapy
CPT/HCPCS: 74176; 80053; 83690; 85025; 93005; 96374; 96375; 96376; 99284; J1170; J2765